=== PATIENT | female | born 1990 | race Caucasian/White ===

== ENCOUNTER 2016-07-25 15:06 | Emergency (ER) | payer OTHER ==
[~2016-07-25] VITALS: Ht 165.1 cm; Wt 72.5 kg
[~2016-07-25 15:06] MED LIST: NAPR500 PO
[2016-07-25 15:34] VITALS: BP 131/80; PULSE 74; RESP 14; TEMP 98.2; O2SAT 98
--- NOTE | 2016-07-25 15:44 | PD ---
HPI Chief Complaint: Bite or Sting Time Seen by Provider: 15:30 Travel History International Travel<30 days: No Contact w/Intl Traveler<30days: No Traveled to known affect area: No History of Present Illness HPI Patient is a 26-year-old female presented to the emergency evaluation of a cat Bite to her left fourth finger. Patient states the cat was ary, brought in by a woman who had been feeding them in her backyard. Apparently the cat's have been dying off possibly poisoned. The cat that bit the patient has not had immunizations. Patient denies any significant past medical history, she denies any pain at this time. PFSH Past Medical History Medical History: Denies Significant Hx Immunizations Current: Yes ?: Not : 0 Past Surgical History Eye Surgery: Yes (STRABISMUS REPAIR) Social History Alcohol Use: No Tobacco Use: Yes Substance Use: No Allergies-Medications (Allergen,Severity, Reaction): Coded Allergies: No Known Allergies (Verified , 07/25/16) Reported Meds & Prescriptions Reported Meds & Active Scripts Active Naprosyn (Naproxen) 500 Mg Tab 500 Mg PO Q12HR PRN Review of Systems Except as stated in HPI: all other systems reviewed are Neg General / Constitutional: No: Fever Musculoskeletal: No: Myalgias Skin: Positive Lesions Physical Exam Narrative GENERAL: Well-nourished, well-developed patient. SKIN: Focused skin assessment warm/dry. Puncture wound to the palmar aspect of the left fourth finger just distal to the DIP joint, no active bleeding and no erythema noted. HEAD: Normocephalic. EYES: No scleral icterus. No injection or drainage. NECK: Supple, trachea midline. No JVD or lymphadenopathy. CARDIOVASCULAR: Regular rate and rhythm without murmurs, gallops, or rubs. RESPIRATORY: Breath sounds equal bilaterally. No accessory muscle use. GASTROINTESTINAL: Abdomen soft, non-tender, nondistended. MUSCULOSKELETAL: No cyanosis, or edema. BACK: Nontender without obvious deformity. No CVA tenderness. Data Data Last Documented VS Vital Signs Date Time Temp Pulse Resp B/P Pulse Ox O2 Delivery O2 Flow Rate FiO2 07/25/16 15:34 98.2 74 14 131/80 98 Orders Rabies Immune Globulin Inj (Hyperrab S/D (07/25/16 15:45) Rabies Vaccine Chick Emb Inj (Rabavert I (07/25/16 15:45) Amoxicil-Clavulanate (Augmentin) (07/25/16 15:45) Wound Care (07/25/16 15:38) Tetanus/Diphtheria Tox Adult (Tetanus/Di (07/25/16 16:00) MDM Medical Decision Making Medical Screen Exam Complete: Yes Emergency Medical Condition: Yes Interpretation(s) Vital Signs Date Time Temp Pulse Resp B/P Pulse Ox O2 Delivery O2 Flow Rate FiO2 07/25/16 15:34 98.2 74 14 131/80 98 Differential Diagnosis Rabies exposure versus cellulitis versus osteomyelitis versus other Narrative Course Patient is a 26-year-old female presenting to the emergency department for evaluation of a cat bite. Per patient's report the cat is ary , has not had any immunizations, and several cats associated with this cat had been dying off. Rabies vaccine and immunoglobulin ordered. Patient will be given first dose of Augmentin now. Wound care ordered. Rabies immunoglobulin given as well as rabies vaccine and first dose of Augmentin. Patient states her tetanus vaccine was less than 5 years ago patient will be given vaccinations schedule, she was advised that she will need to come to the emergency department on the weekends to vaccines given. She is encouraged to return to emergency department immediately for any new or worsening symptoms. Patient verbalized understanding of these instructions. Patient is stable for discharge. Diagnosis Primary Impression: Cat bite of finger Qualified Code: S61.259A - Cat bite of finger, initial encounter Additional Impressions: Need for post exposure prophylaxis for rabies Contact with or exposure to rabies Referrals: [facility] Dept. 3 days Additional Instructions: You will need to complete full course of vaccines, you will go to the health department during the week and on the weekends you will come to the emergency department. Vaccine schedule is as follows: Day 3 - Tuesday, July 28, 2016 at the [facility] Department Day - Tuesday, August 01, 2016 at [facility] emergency Department Day - Tuesday, August 08, 2016 at [facility] emergency Department Day - Tuesday, August 15 at [facility] emergency Department Complete full course of antibiotics as prescribed Follow-up with your primary doctor Return to emergency department immediately for any new or worsening symptoms Med/Other Pt SpecificInfo: Prescription(s) given Scripts Ibuprofen 800 Mg [id number] Mg PO Q6HR PRN (PAIN) #40 TAB Ref 0 Prov:Desiree Aranda 07/25/16 Amoxicillin-Clavulanate (Augmentin)875-125 mg Ewd320 Mg PO BID 10 Days Ref 0 not for use in CrCl <30 ml/min. Prov:Desiree Aranda 07/25/16 Disposition: 01 DISCHARGE HOME Condition: Stable Desiree Aranda Jul 25, 2016 15:44
[2016-07-25] MEDS ORDERED: RABIES IMMUNE GLOBULIN INJ 1,500 UNITS/10 ML VIAL IM ONE (15:45)
[2016-07-25] MEDS ORDERED: AMOXICILLIN/CLAVULANATE K 875 MG TAB PO ONE (15:45)
[2016-07-25] MEDS ORDERED: RABIES VACCINE CHICK EMB INJ 2.5 UNITS/ML SYR IM ONE (15:45)
[2016-07-25] MEDS ORDERED: TETANUS/DIPHTHERIA TOXOID ADULT 0.5 ML VIAL IM ONE (16:00)
[2016-07-25] MEDS ORDERED: AUGM875T PO (16:50)
[2016-07-25] MEDS ORDERED: IBUP800T23 PO (16:50)
== END 2016-07-25 17:11 | disposition home or self-care (01) ==
LOC: NETRI 15:06
DX: S61.255A Open bite of left ring finger without damage to nail, initial encounter (principal); W55.01XA Bitten by cat, initial encounter; Z23 Encounter for immunization
CPT/HCPCS: 90375; 90471; 90675

== ENCOUNTER 2016-08-01 15:08 | Emergency (ER) | payer OTHER ==
[~2016-08-01] VITALS: Ht 165.1 cm; Wt 72.5 kg
[~2016-08-01 15:08] MED LIST changes: +AUGM875T PO; +IBUP800T23 PO
[2016-08-01 15:09] VITALS: BP 132/80; PULSE 66; RESP 16; TEMP 98.6; O2SAT 98
[2016-08-01] MEDS ORDERED: RABIES VACCINE CHICK EMB INJ 2.5 UNITS/ML SYR IM ONE (15:30)
--- NOTE | 2016-08-01 15:36 | PD ---
HPI Chief Complaint: Medical Clearance Time Seen by Provider: 15:32 Travel History International Travel<30 days: No Contact w/Intl Traveler<30days: No Traveled to known affect area: No History of Present Illness HPI 18-year-old female presents to the emergency department requesting her third rabies vaccine. First vaccine was given on July 25 and the second one was done 3 days later at the health department. She has no other medical complaints. Denies fever, chills, nausea, vomiting. Cat bite is completely healed and there are no complications. No known allergies. No other modifying factors or associated signs and symptoms. PFSH Past Medical History Immunizations Current: Yes : 0 Past Surgical History Eye Surgery: Yes (STRABISMUS REPAIR) Social History Alcohol Use: No Tobacco Use: Yes Substance Use: No Allergies-Medications (Allergen,Severity, Reaction): Coded Allergies: No Known Allergies (Verified , 08/01/16) Reported Meds & Prescriptions Reported Meds & Active Scripts Active Ibuprofen 800 Mg Tab 800 Mg PO Q6HR PRN Augmentin (Amoxicillin-Clavulanate) 875-125 mg Tab 875 Mg PO BID 10 Days not for use in CrCl <30 ml/min. Naprosyn (Naproxen) 500 Mg Tab 500 Mg PO Q12HR PRN Review of Systems Except as stated in HPI: all other systems reviewed are Neg Physical Exam Narrative GENERAL: Well-nourished, well-developed female patient, in no acute distress; afebrile, nontoxic-appearing SKIN: Warm and dry. No visible wounds noted to bilateral hands. HEAD: Atraumatic. Normocephalic. EYES: Pupils equal and round. No scleral icterus. No injection or drainage. ENT: Mucosa pink and moist. Airway patent. NECK: Trachea midline. CARDIOVASCULAR: Regular rate. RESPIRATORY: No accessory muscle use. GASTROINTESTINAL: Flat. MUSCULOSKELETAL: No obvious deformities. No clubbing. No cyanosis. No edema. NEUROLOGICAL: Awake and alert. Oriented 3. No obvious cranial nerve deficits. Motor grossly within normal limits. Normal speech. PSYCHIATRIC: Appropriate mood and affect; insight and judgment normal. Data Data Last Documented VS Vital Signs Date Time Temp Pulse Resp B/P Pulse Ox O2 Delivery O2 Flow Rate FiO2 08/01/16 15:09 98.6 66 16 132/80 98 Orders Rabies Vaccine Chick Emb Inj (Rabavert I (08/01/16 15:30) [facility] Medical Decision Making Medical Screen Exam Complete: Yes Emergency Medical Condition: Yes Medical Record Reviewed: Yes Differential Diagnosis Medical clearance, rabies vaccination, rabies protocol Narrative Course 26-year-old female presents for third rabies vaccination. She has no medical complaints. Rabies vaccination ordered. Patient verbalizes understanding and agreement with treatment plan. Patient is medically cleared and stable for discharge. Discussed reasons to return to the emergency department. Instructed patient to follow up with primary care provider. Patient agrees with treatment plan. The patients vital signs are stable and the patient is stable for outpatient follow-up and treatment. Patient discharged home, stable and in no acute distress. Diagnosis Primary Impression: Need for rabies vaccination Referrals: Primary Care Physician Patient Instructions: General Instructions, Rabies Vaccine (ED) Departure Forms: Tests/Procedures, Work Release Enter return to work date: Aug 02, 2016 Additional Instructions: Follow-up with primary care provider Return to emergency department immediately with worsening of symptoms Med/Other Pt SpecificInfo: Prescription(s) given Disposition: DISCHARGE HOME Condition: Stable Marcella Blevins Aug 01, 2016 15:35
== END 2016-08-01 16:13 | disposition home or self-care (01) ==
LOC: NEPK 15:08
DX: Z23 Encounter for immunization (principal); Z72.0 Tobacco use
CPT/HCPCS: 90471; 90675

== ENCOUNTER 2016-08-08 13:27 | Emergency (ER) | payer OTHER ==
[~2016-08-08] VITALS: Ht 165.1 cm; Wt 72.5 kg
[2016-08-08 13:29] VITALS: BP 138/84; PULSE 74; RESP 15; TEMP 98.2; O2SAT 99
--- NOTE | 2016-08-08 13:50 | PD ---
HPI . 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 She has no complaints today. She is doing well. She is due for her last does on 08/15/16 per records. PFSH Past Medical History Immunizations Current: Yes : 0 Past Surgical History Eye Surgery: Yes (STRABISMUS REPAIR) Social History Alcohol Use: No Tobacco Use: Yes Substance Use: No Allergies-Medications (Allergen,Severity, Reaction): Coded Allergies: No Known Allergies (Verified , 08/01/16) Reported Meds & Prescriptions Reported Meds & Active Scripts Active Ibuprofen 800 Mg Tab 800 Mg PO Q6HR PRN Augmentin (Amoxicillin-Clavulanate) 875-125 mg Tab 875 Mg PO BID 10 Days not for use in CrCl <30 ml/min. Naprosyn (Naproxen) 500 Mg Tab 500 Mg PO Q12HR PRN Review of Systems General / Constitutional: No: Fever Eyes: No: Visual changes HENT: No: Headaches Cardiovascular: No: Chest Pain or Discomfort Respiratory: No: Shortness of Breath Gastrointestinal: No: Abdominal Pain Genitourinary: No: Dysuria Musculoskeletal: No: Pain Skin: No Rash Neurologic: No: Weakness Psychiatric: No: Depression Endocrine: No: Polydipsia Hematologic/Lymphatic: No: Easy Bruising Physical Exam Narrative GENERAL: AAO x 3, no acute distress, Well-nourished, well-developed patient. SKIN: Warm and dry. No visible rashes or bruising. HEAD: Normocephalic and atraumatic. EYES: No scleral icterus. No injection or drainage. ENT: No nasal drainage noted. Mucous membranes pink. Airway patent. NECK: Supple, trachea midline. No JVD. CARDIOVASCULAR: Regular rate and rhythm without murmurs, gallops, or rubs. RESPIRATORY: Breath sounds equal bilaterally. No accessory muscle use. No rhonchi or rales. GASTROINTESTINAL: visual inspection is normal. EXTREMITIES: No cyanosis or edema. BACK: Nontender without obvious deformity. No CVA tenderness. PSYCH: AAO x 3, normal affect. 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 She has no complaints today. She is doing well. She is due for her last does on 08/15/16 per records. Patient seen and examined. She is doing well. Rabies vaccine administered. per prior records: You will need to complete full course of vaccines, you will go to the health department during the week and on the weekends you will come to the emergency department. Vaccine schedule is as follows: Day 3 - Tuesday, July 28, 2016 at the [facility] Department Day 7 - Tuesday, August 01, 2016 at [facility] emergency Department Day 14 - Tuesday, August 08, 2016 at [facility] emergency Department Day - Tuesday, August 15 at [facility] emergency Department Patient advised to return on August 15, 2016 for day #28 vaccine. Patient verbalized understanding of instructions, questions were answered, and thanked me for their care. I advised them if their condition worsens, please return to the nearest emergency room for further care. Diagnosis Primary Impression: Need for post exposure prophylaxis for rabies Patient Instructions: General Instructions, Rabies Vaccine (ED) Additional Instructions: Please return on day #28 which will be August 15, 2016 for your vaccine. Med/Other Pt SpecificInfo: No Change to Meds Disposition: 01 DISCHARGE HOME Condition: Stable Shanell Erazo Aug 08, 2016 13:50
[2016-08-08] MEDS ORDERED: RABIES VACCINE CHICK EMB INJ 2.5 UNITS/ML SYR IM ONE (14:00)
== END 2016-08-08 14:56 | disposition home or self-care (01) ==
LOC: NEPD 13:27
DX: Z23 Encounter for immunization (principal); Z72.0 Tobacco use
CPT/HCPCS: 90471; 90675

== ENCOUNTER 2016-08-22 17:52 | Emergency (ER) | payer OTHER ==
[~2016-08-22] VITALS: Ht 165.1 cm; Wt 74.0 kg
[2016-08-22 17:54] VITALS: BP 137/89; PULSE 15; PULSE 84; RESP 17; TEMP 98.2; O2SAT 98
--- NOTE | 2016-08-22 18:06 | PD ---
HPI . here for last rabies vaccine Chief Complaint: Medical Clearance Time Seen by Provider: 18:04 Travel History International Travel<30 days: No Contact w/Intl Traveler<30days: No Traveled to known affect area: No History of Present Illness HPI 26 yr old female here for her last dose of the rabies vaccine. She has no complaints. She is doing well. [facility], [facility] Past Medical History Immunizations Current: Yes ?: Not LMP: 07/07/16 : 0 Past Surgical History Eye Surgery: Yes (STRABISMUS REPAIR) Social History Alcohol Use: No Tobacco Use: Yes Substance Use: No Allergies-Medications (Allergen,Severity, Reaction): Coded Allergies: No Known Allergies (Verified , 08/01/16) Reported Meds & Prescriptions Reported Meds & Active Scripts Active Ibuprofen 800 Mg Tab 800 Mg PO Q6HR PRN Augmentin (Amoxicillin-Clavulanate) 875-125 mg Tab 875 Mg PO BID 10 Days not for use in CrCl <30 ml/min. Naprosyn (Naproxen) 500 Mg Tab 500 Mg PO Q12HR PRN Review of Systems General / Constitutional: No: Fever Eyes: No: Visual changes HENT: No: Headaches Cardiovascular: No: Chest Pain or Discomfort Respiratory: No: Shortness of Breath Gastrointestinal: No: Abdominal Pain Genitourinary: No: Dysuria Musculoskeletal: No: Pain Skin: No Rash Neurologic: No: Weakness Psychiatric: No: Depression Endocrine: No: Polydipsia Hematologic/Lymphatic: No: Easy Bruising Physical Exam Narrative GENERAL: AAO x 3, no acute distress, Well-nourished, well-developed patient. SKIN: Warm and dry. No visible rashes or bruising. HEAD: Normocephalic and atraumatic. EYES: No scleral icterus. No injection or drainage. ENT: No nasal drainage noted. . Airway patent. NECK: Supple, trachea midline. No JVD. CARDIOVASCULAR: Regular rate and rhythm without murmurs, gallops, or rubs. RESPIRATORY: Breath sounds equal bilaterally. No accessory muscle use. No rhonchi or rales. GASTROINTESTINAL: Visual inspection normal EXTREMITIES: No cyanosis or edema. BACK: Nontender without obvious deformity. No CVA tenderness. PSYCH: AAO x 3, normal affect. Data Data Last Documented VS Vital Signs Date Time Temp Pulse Resp B/P Pulse Ox O2 Delivery O2 Flow Rate FiO2 4/30/17 17:54 98.2 84 17 137/89 98 Orders Rabies Vaccine Human Cell Inj (Imovax In (08/22/16 19:15) MDM Medical Decision Making Medical Screen Exam Complete: Yes Emergency Medical Condition: Yes Medical Record Reviewed: Yes Differential Diagnosis rabies exposure, less likely cellulitis, Narrative Course 26 yr old female here for her last dose of the rabies vaccine. She has no complaints. She is doing well. Patient seen and examined. She is here for her last rabies vaccine. Vaccine administered without incident. Diagnosis Primary Impression: Need for post exposure prophylaxis for rabies Additional Impression: Need for rabies vaccination Patient Instructions: General Instructions Additional Instructions: Please return to emergency department if your symptoms return or worsen. Follow up with your primary care provider. Disposition: 01 DISCHARGE HOME Condition: Stable Shanell Erazo Aug 22, 2016 18:06
[2016-08-22] MEDS ORDERED: RABIES VACCINE CHICK EMB INJ 2.5 UNITS/ML SYR IM ONE (18:15)
[2016-08-22] MEDS ORDERED: RABIES VACCINE HUMAN DIPL CELL 2.5 UNITS/ML SYRINGE IM ONE (19:15)
== END 2016-08-22 20:47 | disposition home or self-care (01) ==
LOC: NEPK 17:52
DX: Z23 Encounter for immunization (principal)
CPT/HCPCS: 90471; 90675